=== PATIENT | female | born 1975 | race Caucasian/White ===

== ENCOUNTER 2021-03-02 15:39 | Emergency (ER) | payer BC ==
[~2021-03-02] VITALS: Ht 177.8 cm; Wt 95.2 kg
[2021-03-02] MEDS ORDERED: CITA20 PO (15:57)
[2021-03-02] MEDS ORDERED: BUPR150ER PO (15:57)
[2021-03-02 17:29] LABS: BASOPHILS ABSOLUTE AUTO 0.03 K/mm3 (0.00-0.23); BASOPHILS PERCENT AUTO 0 % (0-2); EOSINOPHILS ABSOLUTE AUTO 0.09 K/mm3 (0.00-0.68); EOSINOPHILS PERCENT AUTO 1 % (0-6); Hematocrit 39.7 % (33.0-51.0); Hemoglobin 13.4 g/dL (11.5-16.0); IMMATURE GRAN ABSOLUTE AUTO 0.03 K/mm3 (0.00-0.10); IMMATURE GRAN PERCENT AUTO 0 % (0-1); LYMPHOCYTES ABSOLUTE AUTO 2.12 K/mm3 (0.84-5.20); LYMPHOCYTES PERCENT AUTO 24 % (21-46); MONOCYTES ABSOLUTE AUTO 0.57 K/mm3 (0.16-1.47); MONOCYTES PERCENT AUTO 6 % (4-13); Mean Corpuscular HGB Conc 33.8 g/dL (31.5-36.5); Mean Corpuscular Volume 89 fL (80-100); Mean Platelet Volume 10.7 fL (9.1-12.4); NEUTROPHILS ABSOLUTE AUTO 6.08 K/mm3 (1.96-9.15); NEUTROPHILS PERCENT AUTO 68 % (41-73); Platelet Count 301 K/mm3 (150-400); RDW Coefficient Variation 13.2 % (11.7-14.2); RDW Standard Deviation 43.5 fL (35.1-46.3); Red Blood Cell Count 4.46 M/mm3 (3.80-5.20); White Blood Cell Count 8.92 K/mm3 (4.00-11.30)
[2021-03-02 17:41] LABS: Source, Urine Clean Catch
[2021-03-02 17:43] LABS: Alanine Aminotransfer (ALT/SGP 44 U/L (12-78); Albumin, Blood 3.4 g/dL (3.4-5.0); Alk Phos 78 U/L (50-136); Anion Gap 5 mmol/L (6-16); Aspartate Aminotrans (AST/SGOT 75 U/L (12-37); Bilirubin, Total 0.3 mg/dL (0.1-1.0); Blood Urea Nitrogen 16 mg/dL (8-24); Bun/Creatinine Ratio 20.2 (12.0-20.0); CO2, Blood 27 mmol/L (21-32); Calcium, Blood 9.3 mg/dL (8.5-10.1); Chloride, Blood 109 mmol/L (98-108); Creatinine, Blood 0.79 mg/dL (0.40-1.00); Globulin, Blood 3.5 g/dL (2.2-4.0); Glomerular Filtration Rate >60 (60-); Glucose, Blood 97 mg/dL (70-99); Potassium, Blood 4.1 mmol/L (3.5-5.5); Sodium, Blood 141 mmol/L (136-145); Total Protein, Blood 6.9 g/dL (6.4-8.2)
[2021-03-02 17:46] LABS: Appearance, Urine Cloudy (Clear); Bilirubin, Urine Neg (Neg); Blood, Urine 2+ (Neg); Color, Urine Yellow (P-Yellow); Glucose Qualitative, Urine Neg (Neg); Ketones, Urine Neg (Neg); Leukocyte Esterase, Urine 2+ (Neg); Nitrite, Urine Neg (Neg); Protein, Urine Neg (Neg); Urobilinogen, Urine NORM (Normal); pH, Urine 6.5 (5.0-8.0)
[2021-03-02 17:55] LABS: Amorphous Light (0-Heavy); Bacteria Many /hpf; Red Blood Cells, Urine 0-2 /hpf (0-2); Squamous Epithelial Cells Few /hpf (Few)
[2021-03-17] MEDS ORDERED: VALA500 PO (11:07)
[2021-03-17] MEDS ORDERED: MELA3 PO (11:08)
== END 2021-03-02 19:15 | disposition home or self-care (01) ==
LOC: ER 15:39
PROVIDERS: Physician Assistant
DX: K80.20 Calculus of gallbladder without cholecystitis without obstruction (principal); Z79.899 Other long term (current) drug therapy
CPT/HCPCS: 76705; 80053; 81001; 83690; 84703; 85025; 87086; 99284-25; J7030

== ENCOUNTER 2021-03-25 06:13 | Day surgery (SDC) | payer BC ==
[~2021-03-25] VITALS: Ht 177.8 cm; Wt 95.7 kg
[~2021-03-25 06:13] MED LIST: BUPR150ER PO; CITA20 PO; MELA3 PO; VALA500 PO
--- NOTE | 2021-03-25 07:05 | NUR ---
Ambulatory in Day Surgery. Surgical site prepped with 2% Chlorhexidine cloth wipe. History, Chart, Medications and Allergies reviewed before start of procedure. Lungs clear T/O to Auscultation. Patient confirms NPO status and agrees with scheduled surgery. Pre-Op teaching done. Pt verbalizes understanding. Patient States Post-Procedure ride home has been arranged. Patient reports completing Chlorhexadine shower X2 prior to admission to hospital.
--- NOTE | 2021-03-25 10:08 | NUR ---
VSS. BREATHING RA. RESP EVEN AND UNLABORED. ALERT, TALKING, ANSWERING QUESTIONS APPROPRIATELY. C/O 1-11/19 SHARP PAIN TO MIDDLE ABDOMEN, THAT INCREASED AFTER GETTING DRESSED. GAIT STEADY. NOW BACK IN BED. TOLERATING PO FLUIDS AND CRACKERS. Discharge instructions reviewed with patient. Patient verbalizes understanding. Copy given to patient to take home. to drive home.
--- NOTE | 2021-03-25 10:19 | NUR ---
STERI STRIPS X3 TO ABDOMEN CLEAN,DRY, INTACT WITH NO VISIBLE DRAINAGE, SWELLING, ERYTHEMA OR BRUISING NOTED. WILL DISCHARGE HOME WHEN HER SIGNIFICANT OTHER ARRIVES AT PATIENT ENTRANCE WITH THE CAR.
== END 2021-03-25 10:19 | disposition home or self-care (01) ==
LOC: ORSCMMR 06:13 → ORD 07:30 → ORSCMMR 07:30
PROVIDERS: Surgery
PROC: BF031ZZ Plain Radiography of Gallbladder and Bile Ducts using Low Osmolar Contrast (ICD-10-PCS; principal; 2021-03-25 07:30)
PROC: 0FT44ZZ Resection of Gallbladder, Percutaneous Endoscopic Approach (ICD-10-PCS; principal; 2021-03-25 07:30)
DX: K80.10 Calculus of gallbladder with chronic cholecystitis without obstruction (principal); K66.0 Peritoneal adhesions (postprocedural) (postinfection); F41.8 Other specified anxiety disorders; Z79.899 Other long term (current) drug therapy
CPT/HCPCS: 74300; 88304; A9270; C1729; J0461; J0690; J1100; J1885; J2250; J2370; J2405; J2704; J3010; J7120

== ENCOUNTER → 2022-01-28 | Outpatient (CLI) | payer BC | END | disposition home or self-care (01) | LOC: LAB SHORT 09:00 | DX: N39.0 Urinary tract infection, site not specified (principal) | CPT/HCPCS: 87077; 87086; 87186 ==

== ENCOUNTER 2025-04-23 20:10 | Inpatient (IN) | payer BC ==
[~2025-04-23] VITALS: Ht 177.8 cm; Wt 94.8 kg
[2025-04-23 23:02] LABS: BASOPHILS ABSOLUTE AUTO 0.04 K/mm3 (0.00-0.23); BASOPHILS PERCENT AUTO 0 % (0-2); EOSINOPHILS ABSOLUTE AUTO 0.19 K/mm3 (0.00-0.68); EOSINOPHILS PERCENT AUTO 2 % (0-6); Hematocrit 31.6 % (33.0-51.0); Hemoglobin 10.7 g/dL (11.5-16.0); IMMATURE GRAN ABSOLUTE AUTO 0.09 K/mm3 (0.00-0.10); IMMATURE GRAN PERCENT AUTO 1 % (0-1); LYMPHOCYTES ABSOLUTE AUTO 1.25 K/mm3 (0.84-5.20); LYMPHOCYTES PERCENT AUTO 13 % (21-46); MONOCYTES ABSOLUTE AUTO 0.68 K/mm3 (0.16-1.47); MONOCYTES PERCENT AUTO 7 % (4-13); Mean Corpuscular HGB Conc 33.9 g/dL (31.5-36.5); Mean Corpuscular Volume 89 fL (80-100); NEUTROPHILS ABSOLUTE AUTO 7.25 K/mm3 (1.96-9.15); NEUTROPHILS PERCENT AUTO 76 % (41-73); NRBC ABSOLUTE 0.00 K/mm3 (0.00-0.02); NRBC Auto 0.0 /100 WBC (0.0-0.2); Platelet Count 292 K/mm3 (150-400); RDW Coefficient Variation 14.6 % (11.7-14.2); RDW Standard Deviation 45.6 fL (35.1-46.3)
[2025-04-23 23:10] LABS: Alanine Aminotransfer (ALT/SGP 38.0 U/L (12-78); Albumin, Blood 3.0 g/dL (3.4-5.0); Albumin/Globulin Ratio 0.7 (0.8-1.8); Anion Gap 7.0 mmol/L (3-11); Aspartate Aminotrans (AST/SGOT 82.0 U/L (12-37); Bilirubin, Total 3.2 mg/dL (0.1-1.0); Blood Urea Nitrogen 12.0 mg/dL (8-24); CO2, Blood 29.0 mmol/L (21-32); Calcium, Blood 8.8 mg/dL (8.5-10.1); Chloride, Blood 102.0 mmol/L (98-108); Creatinine, Blood 0.71 mg/dL (0.40-1.00); Globulin, Blood 4.2 g/dL (2.2-4.0); Glucose, Blood 97.0 mg/dL (70-99); Magnesium, Blood 2.0 mg/dL (1.6-2.4); Potassium, Blood 3.5 mmol/L (3.5-5.5); Sodium, Blood 134.0 mmol/L (136-145); Total Protein, Blood 7.2 g/dL (6.4-8.2)
[2025-04-23 23:20] LABS: Prothrombin Time Results 11.4 Sec (9.7-11.5)
[2025-04-24] VITALS (8 sets, daily range): BP systolic 122–161; BP diastolic 73–82
[2025-04-24 01:07] LABS: Source, Urine Clean Catch
[2025-04-24 01:11] LABS: Bilirubin, Urine Neg (Neg); Glucose Qualitative, Urine Neg (Neg); Ketones, Urine Neg (Neg); Leukocyte Esterase, Urine 1+ (Neg); Protein, Urine 2+ (Neg); Specific Gravity, Urine 1.010 (1.003-1.022); Urobilinogen, Urine 3+ (Normal)
[2025-04-24 01:17] LABS: Color, Urine Yellow (P-Yellow)
[2025-04-24 01:19] LABS: Red Blood Cells, Urine 0-2 /hpf (0-2); White Blood Cells, Urine 0-2 /hpf (0-5)
[2025-04-24] MEDS ORDERED: Morphine Sulfate 4 MG/1 ML Injection IV ONE (01:25)
[2025-04-24] MEDS ORDERED: Ondansetron HCl 2 MG / ML 2ML Vial IV PRN (02:05)
[2025-04-24] MEDS ORDERED: Naloxone HCl 0.4MG / ML 1ML Vial IV PRN (02:05)
[2025-04-24] MEDS ORDERED: Morphine Sulfate 4 MG/1 ML Injection IV PRN (02:10)
[2025-04-24 02:55] LABS: Hematocrit 29.5 % (33.0-51.0); Hemoglobin 10.0 g/dL (11.5-16.0)
[2025-04-24] MEDS ORDERED: LOSA50 PO (03:00)
--- NOTE | 2025-04-24 04:59 | NUR ---
SHIFT SUMMARY PT ARRIVED A&OX4. VSS ON RA >96%. AFEBRILE AT THIS TIME. PTs PAIN UNDER CONTROL UPON ARRIVAL FROM ED. WILL CONTINUE TO MONITOR. PT STATES PAIN IS MAINLY IN RLQ. PT UP TO BATHROOM WITH SBA. PT REMAINS NPO. NO FURTHER QUESTIONS OR CONCERNS AT THIS TIME. FLUIDS CONTINUOUSLY RUNNING @ 100ML/HR. WILL CONTINUE WITH PLAN OF CARE.
[2025-04-24 05:25] LABS: Bilirubin, Direct 1.7 mg/dL (0.0-0.3); Bilirubin, Indirect 1.8 mg/dL (0.1-0.7); Bilirubin, Total 3.5 mg/dL (0.1-1.0)
[2025-04-24 07:36] LABS: Hematocrit 29.8 % (33.0-51.0); Hemoglobin 10.1 g/dL (11.5-16.0)
[2025-04-24] MEDS ORDERED: Polyethylene Glycol 3350 17 gm PO PRN (08:10)
--- NOTE | 2025-04-24 10:03 | NUR ---
Inflatable mattress cover placed over bed mattress for additional relief of back discomfort. Pt states it is an improvement. Also requested methocarbamol from provider, pt requenst as she was taking this while hospitalized in OR for the abdominal bleeding.
--- NOTE | 2025-04-24 10:42 | NUR ---
Call over vocera from Dr. Ro: if pt's HGb check at 1100 is stable, no angiogram. If Hgb is dropping, plan for angiogram today. Dr. Camacho and the patient were notified of the plan.
--- NOTE | 2025-04-24 11:09 | NUR ---
given methocarbamol and morphine for abdominal pain relief. at the bedside. Lab draw for h&H recheck at this time.
[2025-04-24 11:27] LABS: Hematocrit 29.3 % (33.0-51.0); Hemoglobin 9.9 g/dL (11.5-16.0)
--- NOTE | 2025-04-24 12:44 | NUR ---
Pt reports good pain control and no further nausea. STates hungry. Updated her on the plan to recheck the H+H at 1500 for further downward trend, still with possiblity for angiogram with IR if indicated. Doug also updated on plan of care per IR.
--- NOTE | 2025-04-24 16:18 | NUR ---
PT AWAKE, WALKED TO BATHROOM AND IS ASKING FOR PAIN RELIEF MEDS AT THIS TIME.
[2025-04-24 16:29] LABS: BASOPHILS ABSOLUTE AUTO 0.03 K/mm3 (0.00-0.23); BASOPHILS PERCENT AUTO 0 % (0-2); EOSINOPHILS ABSOLUTE AUTO 0.17 K/mm3 (0.00-0.68); EOSINOPHILS PERCENT AUTO 2 % (0-6); Hematocrit 33.6 % (33.0-51.0); Hemoglobin 11.2 g/dL (11.5-16.0); IMMATURE GRAN ABSOLUTE AUTO 0.07 K/mm3 (0.00-0.10); IMMATURE GRAN PERCENT AUTO 1 % (0-1); LYMPHOCYTES ABSOLUTE AUTO 0.97 K/mm3 (0.84-5.20); LYMPHOCYTES PERCENT AUTO 14 % (21-46); MONOCYTES ABSOLUTE AUTO 0.66 K/mm3 (0.16-1.47); MONOCYTES PERCENT AUTO 9 % (4-13); Mean Corpuscular HGB Conc 33.3 g/dL (31.5-36.5); Mean Corpuscular Volume 92 fL (80-100); NEUTROPHILS ABSOLUTE AUTO 5.27 K/mm3 (1.96-9.15); NEUTROPHILS PERCENT AUTO 74 % (41-73); NRBC ABSOLUTE 0.00 K/mm3 (0.00-0.02); NRBC Auto 0.0 /100 WBC (0.0-0.2); Platelet Count 308 K/mm3 (150-400); RDW Coefficient Variation 14.9 % (11.7-14.2); RDW Standard Deviation 47.7 fL (35.1-46.3)
[2025-04-24 17:34] LABS: Hematocrit 29.7 % (33.0-51.0); Hemoglobin 9.9 g/dL (11.5-16.0)
--- NOTE | 2025-04-24 18:50 | NUR ---
Pain better controlled this afternoon and evening with 4 mg IV morphine and muscle relaxant tablet. She ate with a good appetite after it was clear that she would not have angiogram today. Plan is to recheck the labs in the morning and then decide if she will have the angiogram with IR tomorrow.
[2025-04-24 21:19] LABS: Hematocrit 28.9 % (33.0-51.0); Hemoglobin 9.8 g/dL (11.5-16.0)
[2025-04-24] MEDS ORDERED: VENL75ER PO (22:21)
[2025-04-25] VITALS (29 sets, daily range): BP systolic 88–174; BP diastolic 56–124
[2025-04-25 03:29] LABS: BASOPHILS ABSOLUTE AUTO 0.03 K/mm3 (0.00-0.23); BASOPHILS PERCENT AUTO 0 % (0-2); EOSINOPHILS ABSOLUTE AUTO 0.21 K/mm3 (0.00-0.68); EOSINOPHILS PERCENT AUTO 3 % (0-6); Hematocrit 30.9 % (33.0-51.0); Hemoglobin 10.3 g/dL (11.5-16.0); IMMATURE GRAN ABSOLUTE AUTO 0.08 K/mm3 (0.00-0.10); IMMATURE GRAN PERCENT AUTO 1 % (0-1); LYMPHOCYTES ABSOLUTE AUTO 1.29 K/mm3 (0.84-5.20); LYMPHOCYTES PERCENT AUTO 16 % (21-46); MONOCYTES ABSOLUTE AUTO 0.87 K/mm3 (0.16-1.47); MONOCYTES PERCENT AUTO 11 % (4-13); Mean Corpuscular HGB Conc 33.3 g/dL (31.5-36.5); Mean Corpuscular Volume 92 fL (80-100); NEUTROPHILS ABSOLUTE AUTO 5.63 K/mm3 (1.96-9.15); NEUTROPHILS PERCENT AUTO 69 % (41-73); NRBC ABSOLUTE 0.00 K/mm3 (0.00-0.02); NRBC Auto 0.0 /100 WBC (0.0-0.2); Platelet Count 305 K/mm3 (150-400); RDW Coefficient Variation 14.7 % (11.7-14.2); RDW Standard Deviation 48.0 fL (35.1-46.3)
[2025-04-25 03:49] LABS: Alanine Aminotransfer (ALT/SGP 50.0 U/L (12-78); Albumin, Blood 2.6 g/dL (3.4-5.0); Albumin/Globulin Ratio 0.7 (0.8-1.8); Anion Gap 7.0 mmol/L (3-11); Aspartate Aminotrans (AST/SGOT 85.0 U/L (12-37); Bilirubin, Total 2.1 mg/dL (0.1-1.0); Blood Urea Nitrogen 14.0 mg/dL (8-24); CO2, Blood 28.0 mmol/L (21-32); Calcium, Blood 8.2 mg/dL (8.5-10.1); Chloride, Blood 105.0 mmol/L (98-108); Creatinine, Blood 0.73 mg/dL (0.40-1.00); Globulin, Blood 3.8 g/dL (2.2-4.0); Glucose, Blood 90.0 mg/dL (70-99); Potassium, Blood 4.0 mmol/L (3.5-5.5); Sodium, Blood 136.0 mmol/L (136-145); Total Protein, Blood 6.4 g/dL (6.4-8.2)
--- NOTE | 2025-04-25 05:28 | NUR ---
SHIFT SUMMARY PATIENT ALERT AND ORIENTED X4. MEDICATED PER EMAR FOR PAIN. DENIES HAVING SHORTNESS OF BREATH. PATIENT PLACED ON 2 LITERS O2 VIA NC TO MAINTAIN SPO2 >90% WHILE SLEEPING. VITAL SIGNS OTHERWISE STABLE. WILL CONTINUE TO MONITOR. CALL LIGHT WITHIN REACH.
--- NOTE | 2025-04-25 06:24 | NUR ---
PHYSICIAN COMMUNICATION CONTACTED DR WATSON TO NOTIFY HIM THAT THE PATIENT IS CURRENTLY IN TEARS WITH 10/10 LOWER ABDOMINAL PAIN THAT FEELS DIFFERENT FROM THE PAIN SHE'S BEEN EXPERIENCING OVERNIGHT. AN ADDITIONAL 2 MG IV MORPHINE ORDERED FOR NOW.
[2025-04-25] MEDS ORDERED: Morphine Sulfate 4 MG/1 ML Injection IV ONE (06:25)
--- NOTE | 2025-04-25 06:58 | NUR ---
DR POWER TO BEDSIDE TO ASSESS PATIENT FOR 10/10 PAIN UNRESOLVED BY IV MORPHINE.
[2025-04-25] MEDS ORDERED: FentaNYL Citrate 50 MCG/ML 2 ML Injection IV PRN (07:00)
[2025-04-25] MEDS ORDERED: FentaNYL Citrate 50 MCG/ML 2 ML Injection ONE ×3 (07:02→10:47)
[2025-04-25] MEDS ORDERED: HYDROmorphone 1 MG/ML 30 ML Bag IV PRN (07:10)
[2025-04-25] MEDS ORDERED: NS 500 ML IV ONE ×2 (07:18→09:54)
[2025-04-25] MEDS ORDERED: fentaNYL citrate 20 MCG/ML 30MLSYR IV PRN (07:45)
[2025-04-25] MEDS ORDERED: FentaNYL Citrate 50 MCG/ML 2 ML Injection IV ONE (07:45)
[2025-04-25 08:24] LABS: Hematocrit 34.1 % (33.0-51.0); Hemoglobin 11.2 g/dL (11.5-16.0)
[2025-04-25] MEDS ORDERED: HYDROmorphone HCl/Pf 1MG SYR IV ONE ×2 (09:00→10:20)
[2025-04-25] MEDS ORDERED: Heparin Sodium 1000 Units/ML 10ML MDV ONE (09:54)
[2025-04-25] MEDS ORDERED: NS 1,000 ML IV ONE ×2 (09:54→10:22)
[2025-04-25] MEDS ORDERED: HYDROmorphone HCl/Pf 1MG SYR ONE (10:01)
[2025-04-25] MEDS ORDERED: Midazolam HCl 1MG / ML 2ML Vial ONE ×3 (10:22→11:13)
[2025-04-25] MEDS ORDERED: Morphine Sulfate 4 MG/1 ML Injection ONE (11:35)
[2025-04-25] MEDS ORDERED: Ondansetron HCl 2 MG / ML 2ML Vial ONE (11:51)
[2025-04-25] MEDS ORDERED: HYDROmorphone HCl/Pf 1MG SYR IV PRN ×2 (12:25→14:55)
[2025-04-25] MEDS ORDERED: NS 500 ML IV SCH (14:05)
[2025-04-25 16:28] LABS: Hematocrit 30.5 % (33.0-51.0); Hemoglobin 10.1 g/dL (11.5-16.0)
[2025-04-25] MEDS ORDERED: NS 1,000 ML IV SCH (16:40)
[2025-04-25] MEDS ORDERED: Nystatin 100,000 Unit/ML Susp 5 ML UDC PO SCH (17:00)
[2025-04-25 17:06] LABS: Anion Gap 8.0 mmol/L (3-11); Blood Urea Nitrogen 17.0 mg/dL (8-24); CO2, Blood 25.0 mmol/L (21-32); Calcium, Blood 8.5 mg/dL (8.5-10.1); Chloride, Blood 106.0 mmol/L (98-108); Creatinine, Blood 0.6 mg/dL (0.40-1.00); Glucose, Blood 113.0 mg/dL (70-99); Potassium, Blood 4.2 mmol/L (3.5-5.5); Sodium, Blood 135.0 mmol/L (136-145)
--- NOTE | 2025-04-25 18:09 | NUR ---
Summary. Pt A&O all shift. union laborer intervention completed this shift, see report. Pain medication regiment changed, pain is more well controlled now, see emar. R/groin access site intact, no bleeding/ecchymosis noted. VS stable, see chart for further details.
[2025-04-26] VITALS (12 sets, daily range): BP systolic 96–139; BP diastolic 61–93
[2025-04-26 00:27] LABS: Hematocrit 25.6 % (33.0-51.0); Hemoglobin 8.4 g/dL (11.5-16.0)
--- NOTE | 2025-04-26 02:22 | NUR ---
NOTIFIED DR WATSON UPDATED WITH LATEST H/H RESULT OF 8.4/25.6 AND PT REQUEST FOR MORE FREQUENT ZOFRAN FOR NAUSEA. ORDER RECEIVED. VSS AT THIS TIME. WILL CONTINUE TO MONITOR.
[2025-04-26] MEDS ORDERED: Ondansetron HCl 2 MG / ML 2ML Vial IV PRN (02:25)
[2025-04-26 03:43] LABS: BASOPHILS ABSOLUTE AUTO 0.06 K/mm3 (0.00-0.23); BASOPHILS PERCENT AUTO 1 % (0-2); EOSINOPHILS ABSOLUTE AUTO 0.18 K/mm3 (0.00-0.68); EOSINOPHILS PERCENT AUTO 2 % (0-6); Hematocrit 25.1 % (33.0-51.0); Hemoglobin 8.4 g/dL (11.5-16.0); IMMATURE GRAN ABSOLUTE AUTO 0.09 K/mm3 (0.00-0.10); IMMATURE GRAN PERCENT AUTO 1 % (0-1); LYMPHOCYTES ABSOLUTE AUTO 0.82 K/mm3 (0.84-5.20); LYMPHOCYTES PERCENT AUTO 10 % (21-46); MONOCYTES ABSOLUTE AUTO 0.80 K/mm3 (0.16-1.47); MONOCYTES PERCENT AUTO 10 % (4-13); Mean Corpuscular HGB Conc 33.5 g/dL (31.5-36.5); Mean Corpuscular Volume 92 fL (80-100); NEUTROPHILS ABSOLUTE AUTO 6.22 K/mm3 (1.96-9.15); NEUTROPHILS PERCENT AUTO 76 % (41-73); NRBC ABSOLUTE 0.00 K/mm3 (0.00-0.02); NRBC Auto 0.0 /100 WBC (0.0-0.2); Platelet Count 324 K/mm3 (150-400); RDW Coefficient Variation 15.3 % (11.7-14.2); RDW Standard Deviation 49.4 fL (35.1-46.3)
[2025-04-26 04:15] LABS: Alanine Aminotransfer (ALT/SGP 488 U/L (12-78); Albumin, Blood 2.3 g/dL (3.4-5.0); Albumin/Globulin Ratio 0.7 (0.8-1.8); Anion Gap 9 mmol/L (3-11); Aspartate Aminotrans (AST/SGOT 790 U/L (12-37); Bilirubin, Total 5.9 mg/dL (0.1-1.0); Blood Urea Nitrogen 13 mg/dL (8-24); CO2, Blood 26 mmol/L (21-32); Calcium, Blood 7.7 mg/dL (8.5-10.1); Chloride, Blood 106 mmol/L (98-108); Creatinine, Blood 0.64 mg/dL (0.40-1.00); Globulin, Blood 3.5 g/dL (2.2-4.0); Glucose, Blood 106 mg/dL (70-99); Potassium, Blood 3.8 mmol/L (3.5-5.5); Sodium, Blood 137 mmol/L (136-145); Total Protein, Blood 5.8 g/dL (6.4-8.2)
--- NOTE | 2025-04-26 04:52 | NUR ---
NOTIFIED DR WATSON UPDATED WITH LATEST LAB RESULTS AND INCREASE IN LIVER ENZYMES. STATES WILL REVIEW CHART AND PUT ORDERS IN. VSS AT THIS TIME. WILL CONTINUE TO MONITOR.
[2025-04-26 05:57] LABS: Prothrombin Time Results 11.9 Sec (9.7-11.5)
[2025-04-26 06:19] LABS: Bilirubin, Direct 4.2 mg/dL (0.0-0.3); Bilirubin, Indirect 1.7 mg/dL (0.1-0.7)
[2025-04-26 06:21] LABS: Acetaminophen, Random <2.0 ug/mL (10.0-30.0); Lactate Dehydrogenase (Ld),Bld 1573 U/L (100-240)
--- NOTE | 2025-04-26 06:30 | NUR ---
SHIFT SUMMARY PT ALERT/ORIENTED. PAIN AND NAUSEA OFF AND ON T/O NIGHT, CONTROLLED WITH DILAUDID AND ZOFRAN. VSS T/O NIGHT. NC 4 L IMPLEMENTED TO KEEP O2 SAT >94%, ESPECIALLY WHILE SLEEPING. JAUNDICE NOTED. LIVER ENZYMES ELEVATED AND CALLED TO DR WATSON. NEW ORDERS RECEIVED FOR MORE LABS/TESTS. RIGHT GROIN CATH SITE REMAINS BENIGN, SOFT, NO HEMATOMA OR BLEEDING NOTED. WILL UPDATE DAY RN AT BEDSIDE WITH ALL OUTSTANDING ISSUES AND PROBLEMS TO DATE.
[2025-04-26 08:23] LABS: Hematocrit 25.7 % (33.0-51.0); Hemoglobin 8.6 g/dL (11.5-16.0)
--- NOTE | 2025-04-26 08:43 | NUR ---
Transfer. Pt transferred to PCU 18. Report given to LINK CUTTER. Pt alert and oriented this morning, phyiscal exam unremarkable. On 02 overnight via NC, pt back to RA for transfer. No acute events overnight per nightshift report. Pt taken to new room via wheelchair, all personal belongings brought with pt.
[2025-04-26 15:24] LABS: Hematocrit 25.7 % (33.0-51.0); Hemoglobin 8.5 g/dL (11.5-16.0)
--- NOTE | 2025-04-26 18:28 | NUR ---
End of Shift Pt brought to PCU-18 by wheelchair from ICU this morning. Pt A&O x4, able to stand & independently ambulate. Pt VSS. Spo2 > 92% on RA. Monitor showing NSR. R groin access site w/ CHG dressing in place. Site WNL, soft, nontender, no bleeding, no hematoma. Pt c/o "mild" & "dull" headache & intermittent "sharp" abd pain. Pt abd soft & distended. Pt reporting abd distention "the same as it has been." Medicating pt for pain per emar/pt request w/ pt report of improvement w/ medication. Pt w/ episode of nausea, medicated per emar w/ improvement.
[2025-04-26 20:44] LABS: Hematocrit 25.7 % (33.0-51.0); Hemoglobin 8.5 g/dL (11.5-16.0)
[2025-04-27 00:36] LABS: Hematocrit 24.2 % (33.0-51.0); Hemoglobin 7.9 g/dL (11.5-16.0)
[2025-04-27 03:14] VITALS: BP 125/76
[2025-04-27 04:56] LABS: BASOPHILS ABSOLUTE AUTO 0.02 K/mm3 (0.00-0.23); BASOPHILS PERCENT AUTO 0 % (0-2); EOSINOPHILS ABSOLUTE AUTO 0.20 K/mm3 (0.00-0.68); EOSINOPHILS PERCENT AUTO 3 % (0-6); Hematocrit 24.0 % (33.0-51.0); Hemoglobin 7.8 g/dL (11.5-16.0); IMMATURE GRAN ABSOLUTE AUTO 0.07 K/mm3 (0.00-0.10); IMMATURE GRAN PERCENT AUTO 1 % (0-1); LYMPHOCYTES ABSOLUTE AUTO 0.98 K/mm3 (0.84-5.20); LYMPHOCYTES PERCENT AUTO 15 % (21-46); MONOCYTES ABSOLUTE AUTO 0.65 K/mm3 (0.16-1.47); MONOCYTES PERCENT AUTO 10 % (4-13); Mean Corpuscular HGB Conc 32.5 g/dL (31.5-36.5); Mean Corpuscular Volume 93 fL (80-100); NEUTROPHILS ABSOLUTE AUTO 4.68 K/mm3 (1.96-9.15); NEUTROPHILS PERCENT AUTO 71 % (41-73); NRBC ABSOLUTE 0.00 K/mm3 (0.00-0.02); NRBC Auto 0.0 /100 WBC (0.0-0.2); Platelet Count 331 K/mm3 (150-400); RDW Coefficient Variation 15.1 % (11.7-14.2); RDW Standard Deviation 50.8 fL (35.1-46.3)
[2025-04-27 05:20] LABS: Alanine Aminotransfer (ALT/SGP 261.0 U/L (12-78); Albumin, Blood 2.4 g/dL (3.4-5.0); Albumin/Globulin Ratio 0.7 (0.8-1.8); Anion Gap 7.0 mmol/L (3-11); Aspartate Aminotrans (AST/SGOT 185.0 U/L (12-37); Bilirubin, Total 2.2 mg/dL (0.1-1.0); Blood Urea Nitrogen 9.0 mg/dL (8-24); CO2, Blood 28.0 mmol/L (21-32); Calcium, Blood 8.0 mg/dL (8.5-10.1); Chloride, Blood 107.0 mmol/L (98-108); Creatinine, Blood 0.62 mg/dL (0.40-1.00); Globulin, Blood 3.6 g/dL (2.2-4.0); Glucose, Blood 95.0 mg/dL (70-99); Potassium, Blood 3.6 mmol/L (3.5-5.5); Sodium, Blood 138.0 mmol/L (136-145); Total Protein, Blood 6.0 g/dL (6.4-8.2)
--- NOTE | 2025-04-27 07:27 | NUR ---
PT IS ALERT AND ORIENTED. MEDICATED FOR PAIN PER MAR. AMBULATING INDEPENDENTLY TO BATHROOM. ON 2 L OF OXYGEN HS. ON IV FLUIDS. H&H TRENDING DOWN. CALL MCKEON WITHIN REACH.
[2025-04-27 08:48] VITALS: BP 116/73
[2025-04-27 11:23] VITALS: BP 121/79
[2025-04-27 12:22] LABS: Hematocrit 25.9 % (33.0-51.0); Hemoglobin 8.4 g/dL (11.5-16.0)
--- NOTE | 2025-04-27 17:00 | NUR ---
End of Shift Pt A&O x4. VSS. Spo2 > 92% on RA. Monitor showing NSR. Pt independent in rm. Pt reporting intermittent pain in back & abd. Pt reporting pain "lessening" & pain improving w/ medication per emar/pt request. Pt ambulating in hallway w/ s/o this shift, tolerating well. Pt anticipating discharge home if hgb remains stable.
[2025-04-27 17:22] VITALS: BP 121/83
[2025-04-27 20:30] LABS: Hematocrit 25.7 % (33.0-51.0); Hemoglobin 8.3 g/dL (11.5-16.0)
[2025-04-27 20:40] VITALS: BP 148/87
[2025-04-27 23:32] VITALS: BP 103/75
[2025-04-28 03:43] VITALS: BP 144/83
[2025-04-28 04:39] LABS: BASOPHILS ABSOLUTE AUTO 0.03 K/mm3 (0.00-0.23); BASOPHILS PERCENT AUTO 0 % (0-2); EOSINOPHILS ABSOLUTE AUTO 0.18 K/mm3 (0.00-0.68); EOSINOPHILS PERCENT AUTO 3 % (0-6); Hematocrit 25.1 % (33.0-51.0); Hemoglobin 8.2 g/dL (11.5-16.0); IMMATURE GRAN ABSOLUTE AUTO 0.06 K/mm3 (0.00-0.10); IMMATURE GRAN PERCENT AUTO 1 % (0-1); LYMPHOCYTES ABSOLUTE AUTO 1.01 K/mm3 (0.84-5.20); LYMPHOCYTES PERCENT AUTO 15 % (21-46); MONOCYTES ABSOLUTE AUTO 0.52 K/mm3 (0.16-1.47); MONOCYTES PERCENT AUTO 8 % (4-13); Mean Corpuscular HGB Conc 32.7 g/dL (31.5-36.5); Mean Corpuscular Volume 94 fL (80-100); NEUTROPHILS ABSOLUTE AUTO 5.06 K/mm3 (1.96-9.15); NEUTROPHILS PERCENT AUTO 74 % (41-73); NRBC ABSOLUTE 0.00 K/mm3 (0.00-0.02); NRBC Auto 0.0 /100 WBC (0.0-0.2); Platelet Count 328 K/mm3 (150-400); RDW Coefficient Variation 14.9 % (11.7-14.2); RDW Standard Deviation 50.2 fL (35.1-46.3)
[2025-04-28 05:07] LABS: Alanine Aminotransfer (ALT/SGP 176.0 U/L (12-78); Albumin, Blood 2.4 g/dL (3.4-5.0); Albumin/Globulin Ratio 0.7 (0.8-1.8); Anion Gap 8.0 mmol/L (3-11); Aspartate Aminotrans (AST/SGOT 87.0 U/L (12-37); Bilirubin, Total 1.7 mg/dL (0.1-1.0); Blood Urea Nitrogen 7.0 mg/dL (8-24); CO2, Blood 27.0 mmol/L (21-32); Calcium, Blood 8.0 mg/dL (8.5-10.1); Chloride, Blood 106.0 mmol/L (98-108); Creatinine, Blood 0.62 mg/dL (0.40-1.00); Globulin, Blood 3.5 g/dL (2.2-4.0); Glucose, Blood 99.0 mg/dL (70-99); Potassium, Blood 3.6 mmol/L (3.5-5.5); Sodium, Blood 137.0 mmol/L (136-145); Total Protein, Blood 5.9 g/dL (6.4-8.2)
--- NOTE | 2025-04-28 06:50 | NUR ---
PT ALERT AND ORIENTED X 4. MEDICATED FOR BACK PAIN PER MAR. NO COMPLAINS OF CHEST PAIN. AMBULATING INDEPENDENTLY TO THE BATHROOM. VITALS WNL. HG @ 8.2 LAST DRAW THIS AM. ABLE TO MAKE NEEDS KNOWN, CALL MCKEON WITHIN REACH.
[2025-04-28 09:01] VITALS: BP 133/92
[2025-04-28 12:38] LABS: Hematocrit 27.3 % (33.0-51.0); Hemoglobin 8.8 g/dL (11.5-16.0)
[2025-04-28] MEDS ORDERED: Robaxin750 MG PO (15:41)
[2025-04-28] MEDS ORDERED: MIRALAX17 GM PO (15:42)
[2025-04-28] MEDS ORDERED: OXYC5 PO (15:42)
[2025-04-28] MEDS ORDERED: ONDA4ODT SL (15:43)
--- NOTE | 2025-04-28 16:29 | NUR ---
DISCHARGE DISCHARGE INSTRUCTIONS DISCUSSED WITH PATIENT AND HER SO BY ZIGGY RN. ALL QUESTIONS ANSWERED, IV ACCESS REMOVED PER REPORT. ESCORTED OUT VIA WC TO PRIVATE AUTO TO GO HOME.
[2025-04-29 05:01] LABS: ANTI-NUCLEAR AB ANA,IGG ELISA None Detected (None Detected)
[2025-04-29 11:05] LABS: HEPATITIS A ANTIBODY, IGM Negative (Negative); HEPATITIS C AB CIA INTERP Negative (Negative); HEPATITIS C ANTIBODY CIA INDEX 0.13 IV
[2025-04-29 15:30] LABS: HAPTOGLOBIN <10 mg/dL (30-200)
== END 2025-04-28 16:30 | disposition home or self-care (01) | DRG 981 ==
LOC: ER 20:10 → PCU 20:11 → ICUE 04-24 14:41 → PCU 04-24 14:41 → ICUE 04-25 07:32 → PCU 04-26 08:24
PROVIDERS: Emergency Medicine; Internal Medicine; Student in an Organized Health Care Education/Training Program; ADMIT Student in an Organized Health Care Education/Training Program
PROC: 04V53DZ Restriction of Superior Mesenteric Artery with Intraluminal Device, Percutaneous Approach (ICD-10-PCS; principal; 2025-04-25)
DX: K66.1 Hemoperitoneum (principal); I21.A1 Myocardial infarction type 2; K68.3 Retroperitoneal hematoma; F10.10 Alcohol abuse, uncomplicated; E80.6 Other disorders of bilirubin metabolism; D50.0 Iron deficiency anemia secondary to blood loss (chronic); F41.8 Other specified anxiety disorders; I10 Essential (primary) hypertension; E66.9 Obesity, unspecified; Z90.49 Acquired absence of other specified parts of digestive tract; Z79.899 Other long term (current) drug therapy
CPT/HCPCS: 36415; 51701; 74174; 74177; 76705; 76937; 80048; 80053; 80074; 81001; 82247; 82248; 82947; 83010; 83605; 83615; 83735; 84484; 85014; 85018; 85025; 85610; 86038; 86850; 86900; 86901; 87040; 87086; 93005; 93010; 93975; 94760; 94762; 96361; 96374-59; 96375; 96376; 99152; 99153; 99285-25; A9270; C1760; C1769; C1887; C1894; G0378; G0480; J1171; J1644; J2250; J2270; J2405; J3010; J7030; J7040; J7050; J7120; Q9967

== ENCOUNTER → 2025-07-25 | Outpatient (CLI) | payer BC ==
[~2025-07-25] MED LIST changes: +LOSA50 PO; +MIRALAX17 GM PO; +ONDA4ODT SL; +OXYC5 PO; +Robaxin750 MG PO; +VENL75ER PO
== END ==
LOC: LAB 11:17 → LAB SHORT 11:17
DX: N93.9 Abnormal uterine and vaginal bleeding, unspecified (principal)
CPT/HCPCS: 88305

== ENCOUNTER 2025-09-09 07:13 | Day surgery (SDC) | payer BC ==
[~2025-09-09] VITALS: Ht 177.8 cm; Wt 94.3 kg
[2025-09-09] VITALS (15 sets, daily range): BP systolic 99–146; BP diastolic 52–91
[~2025-09-09 07:13] MED LIST changes: +ACET500 PO; +ALPR.5 PO; +CeFAZolin Sodium 2,000 MG in NS 100 ML IV SCH; +HYDMOR2 PO; +IBUP800 PO; +ONDA4ODT MM; +VENL150ER PO; -VENL75ER PO
[2025-09-09] MEDS ORDERED: CeFAZolin Sodium 2,000 MG VIAL ONE (08:02)
[2025-09-09] MEDS ORDERED: FentaNYL Citrate 50 MCG/ML 2 ML Injection ONE (08:02)
[2025-09-09] MEDS ORDERED: Midazolam HCl 1MG / ML 2ML Vial IV PRN (08:05)
[2025-09-09] MEDS ORDERED: Ondansetron HCl 2 MG / ML 2ML Vial IV PRN ×2 (08:05→12:00)
[2025-09-09] MEDS ORDERED: HYDROmorphone HCl/Pf 1MG SYR IV PRN ×2 (08:05→12:00)
--- NOTE | 2025-09-09 08:08 | NUR ---
History, Chart, Medications and Allergies reviewed before start of procedure. Lungs clear T/O to Auscultation. Patient confirms NPO status and agrees with scheduled surgery. Pre-Op teaching done. Pt verbalizes understanding. Patient reports completing Chlorhexadine shower X1 PRIOR TO ADMISSION TO HOSPITAL
[2025-09-09] MEDS ORDERED: FentaNYL Citrate 50 MCG/ML 2 ML Injection IV PRN ×2 (08:10)
[2025-09-09] MEDS ORDERED: Prochlorperazine Edisylate 10 mg Vial IV PRN (08:10)
[2025-09-09] MEDS ORDERED: Albuterol 2.5 MG/3 ML VIAL INH PRN (08:10)
[2025-09-09] MEDS ORDERED: Metoclopramide HCl 5MG / ML 2ML Vial IV PRN ×2 (08:10→12:05)
[2025-09-09] MEDS ORDERED: Bupivacaine 0.5% W/EPI 1:200000 SDV 30 ML Vial ONE (08:20)
[2025-09-09] MEDS ORDERED: Dexamethasone Sod Phos 10 MG/ML 1ML VIAL ONE (08:35)
[2025-09-09] MEDS ORDERED: Ondansetron HCl 2 MG / ML 2ML Vial ONE (08:35)
[2025-09-09] MEDS ORDERED: Rocuronium Bromide 10 MG/ML 5ML Injection IV ONE ×3 (08:35→10:27)
[2025-09-09] MEDS ORDERED: ePHEDrine Sulfate 50 MG/ML 1ML Injection ONE (09:16)
[2025-09-09] MEDS ORDERED: Sugammadex Sodium 200 MG/2ML SDV (100 MG/ML) ONE ×2 (10:27→11:33)
[2025-09-09] MEDS ORDERED: Naloxone HCl 0.4MG / ML 1ML Vial IV PRN (12:00)
[2025-09-09] MEDS ORDERED: FLU VACC TS2025-26(6MOS UP)/PF 45 MCG/0.5 ML SYRINGE IM SCH (12:00)
[2025-09-09] MEDS ORDERED: HYDROmorphone HCl/Pf 1MG SYR ONE ×2 (12:01→12:12)
--- NOTE | 2025-09-09 13:07 | NUR ---
ARRIVAL TO SURG FLOOR TO FLOOR VIA GURNEY. A&O x4, VSS. LAP SITES x4 w/WOUND GLUE C/D/I. STATES SEVERE PAIN - MEDICATED PER EMAR. ON 2L O2 NC w/SATS 93%. SNACKS & DRINKS GIVEN.
[2025-09-09] MEDS ORDERED: Phenylephrine HCl 100 MCG/ML-NS 10MLSYR (1MG/10ML) IV ONE (17:05)
--- NOTE | 2025-09-09 17:44 | NUR ---
SHIFT SUMMARY S/P LAP HYSTER. LAP SITES x4 - C/D/I. PAIN CONTROLLED WELL PER EMAR. TOLERATING FOOD & FLUIDS WELL. VOIDED SUCCESSFULLY. MINIMAL VAGINAL SPOTTING. INDEPENDENT IN ROOM. RESTING IN BED w/CALL LIGHT WITHIN REACH.
[2025-09-09] MEDS ORDERED: Ketorolac Tromethamine 30mg Vial IV SCH (18:00)
[2025-09-10 00:15] VITALS: BP 122/64
--- NOTE | 2025-09-10 04:19 | NUR ---
SHIFT SUMMARY BOBBY WAS ALERT AND FULLY ORIENTED ON ASSESSMENT. PAIN WELL MANAGED THIS SHIFT. LAP SITES C/D/I. DENIES SOB, CHEST PAIN, NAUSEA. SCANT VAGINAL BLEEDING NOTED. PT AMBULATING/ VOIDING APPROPRIATELY. NO ACUTE EVENTS NO NOTED CHANGES TO PT CONDITION.
[2025-09-10 04:52] VITALS: BP 118/74
[2025-09-10 05:12] LABS: BASOPHILS ABSOLUTE AUTO 0.01 K/mm3 (0.00-0.23); BASOPHILS PERCENT AUTO 0 % (0-2); EOSINOPHILS ABSOLUTE AUTO 0.02 K/mm3 (0.00-0.68); EOSINOPHILS PERCENT AUTO 0 % (0-6); Hematocrit 37.0 % (33.0-51.0); Hemoglobin 12.8 g/dL (11.5-16.0); IMMATURE GRAN ABSOLUTE AUTO 0.06 K/mm3 (0.00-0.10); IMMATURE GRAN PERCENT AUTO 1 % (0-1); LYMPHOCYTES ABSOLUTE AUTO 1.93 K/mm3 (0.84-5.20); LYMPHOCYTES PERCENT AUTO 17 % (21-46); MONOCYTES ABSOLUTE AUTO 0.59 K/mm3 (0.16-1.47); MONOCYTES PERCENT AUTO 5 % (4-13); Mean Corpuscular HGB Conc 34.6 g/dL (31.5-36.5); Mean Corpuscular Volume 95 fL (80-100); NEUTROPHILS ABSOLUTE AUTO 8.51 K/mm3 (1.96-9.15); NEUTROPHILS PERCENT AUTO 77 % (41-73); NRBC ABSOLUTE 0.00 K/mm3 (0.00-0.02); NRBC Auto 0.0 /100 WBC (0.0-0.2); Platelet Count 232 K/mm3 (150-400); RDW Coefficient Variation 13.2 % (11.7-14.2); RDW Standard Deviation 45.2 fL (35.1-46.3)
[2025-09-10 07:11] VITALS: BP 125/76
[2025-09-10] MEDS ORDERED: Enoxaparin 40 MG/0.4 ML SYR SC SCH (09:00)
[2025-09-10] MEDS ORDERED: Polyethylene Glycol 3350 17 gm PO SCH (09:00)
[2025-09-10] MEDS ORDERED: MIRALAX17 GM PO (10:40)
[2025-09-10] MEDS ORDERED: HYDMOR2 PO (10:40)
--- NOTE | 2025-09-10 11:07 | NUR ---
dc instruct reviewed. stated understanding. discharged to pov via w/c.
== END 2025-09-10 11:11 | disposition home or self-care (01) ==
LOC: ORSCMMR 07:13 → SURS 12:48 → ORSCMMR 13:30 → ORD 13:30 → ORSCMMR 09-10 11:11
PROVIDERS: Obstetrics & Gynecology
DX: N93.9 Abnormal uterine and vaginal bleeding, unspecified (principal); N94.6 Dysmenorrhea, unspecified; N80.03 Adenomyosis of the uterus; N83.12 Corpus luteum cyst of left ovary; I10 Essential (primary) hypertension; F41.9 Anxiety disorder, unspecified; F32.A Depression, unspecified; Z79.899 Other long term (current) drug therapy
CPT/HCPCS: 36415; 85025; 86850; 86900; 86901; 88307; 94762; A9270; J0690; J1100; J1171; J1650; J1885; J2250; J2371; J2405; J2704; J3010; J7120

== ENCOUNTER 2025-09-19 11:32 | Emergency (ER) | payer BC ==
[~2025-09-19] VITALS: Ht 177.8 cm; Wt 91.6 kg
[~2025-09-19 11:32] MED LIST changes: -CeFAZolin Sodium 2,000 MG in NS 100 ML IV SCH
[2025-09-19] MEDS ORDERED: FentaNYL Citrate 50 MCG/ML 2 ML Injection IV ONE (11:55)
[2025-09-19 12:13] LABS: BASOPHILS ABSOLUTE AUTO 0.05 K/mm3 (0.00-0.23); BASOPHILS PERCENT AUTO 1 % (0-2); EOSINOPHILS ABSOLUTE AUTO 0.18 K/mm3 (0.00-0.68); EOSINOPHILS PERCENT AUTO 2 % (0-6); Hematocrit 41.6 % (33.0-51.0); Hemoglobin 14.5 g/dL (11.5-16.0); IMMATURE GRAN ABSOLUTE AUTO 0.05 K/mm3 (0.00-0.10); IMMATURE GRAN PERCENT AUTO 1 % (0-1); LYMPHOCYTES ABSOLUTE AUTO 1.84 K/mm3 (0.84-5.20); LYMPHOCYTES PERCENT AUTO 22 % (21-46); MONOCYTES ABSOLUTE AUTO 0.40 K/mm3 (0.16-1.47); MONOCYTES PERCENT AUTO 5 % (4-13); Mean Corpuscular HGB Conc 34.9 g/dL (31.5-36.5); Mean Corpuscular Volume 91 fL (80-100); NEUTROPHILS ABSOLUTE AUTO 5.88 K/mm3 (1.96-9.15); NEUTROPHILS PERCENT AUTO 70 % (41-73); NRBC ABSOLUTE 0.00 K/mm3 (0.00-0.02); NRBC Auto 0.0 /100 WBC (0.0-0.2); Platelet Count 329 K/mm3 (150-400); RDW Coefficient Variation 12.8 % (11.7-14.2); RDW Standard Deviation 41.5 fL (35.1-46.3)
[2025-09-19 12:45] LABS: Alanine Aminotransfer (ALT/SGP 27.0 U/L (12-78); Albumin, Blood 3.8 g/dL (3.4-5.0); Albumin/Globulin Ratio 1.0 (0.8-1.8); Anion Gap 9.0 mmol/L (3-11); Aspartate Aminotrans (AST/SGOT 20.0 U/L (12-37); Bilirubin, Total 0.5 mg/dL (0.1-1.0); Blood Urea Nitrogen 16.0 mg/dL (8-24); CO2, Blood 25.0 mmol/L (21-32); Calcium, Blood 9.1 mg/dL (8.5-10.1); Chloride, Blood 106.0 mmol/L (98-108); Creatinine, Blood 0.67 mg/dL (0.40-1.00); Globulin, Blood 3.7 g/dL (2.2-4.0); Glucose, Blood 96.0 mg/dL (70-99); Potassium, Blood 3.4 mmol/L (3.5-5.5); Sodium, Blood 137.0 mmol/L (136-145); Total Protein, Blood 7.5 g/dL (6.4-8.2)
[2025-09-19] MEDS ORDERED: HYDROmorphone HCl/Pf 1MG SYR IV ONE (13:30)
[2025-09-19 15:25] LABS: Hematocrit 38.7 % (33.0-51.0); Hemoglobin 13.3 g/dL (11.5-16.0)
[2025-09-19 16:08] VITALS: BP 128/68
== END 2025-09-19 16:09 | disposition home or self-care (01) ==
LOC: ER 11:32
PROVIDERS: Emergency Medicine
DX: N99.820 Postprocedural hemorrhage of a genitourinary system organ or structure following a genitourinary system procedure (principal); Z87.891 Personal history of nicotine dependence; Z79.899 Other long term (current) drug therapy
CPT/HCPCS: 80053; 83605; 85014; 85018; 85025; 96374; 96375; 99283-25; A9270; J1171; J3010